=== PATIENT | female | born 2005 | race Caucasian/White ===

== ENCOUNTER 2024-05-20 20:58 | Inpatient (IN) | payer BC ==
[~2024-05-20] VITALS: Ht 157.5 cm; Wt 47.2 kg
[2024-05-20 21:15] LABS: BASOPHILS # (AUTO) 0.1 K/uL (0.0-0.2); BASOPHILS % (AUTO) 0.7 % (0.0-2.0); EOSINOPHILS # (AUTO) 0.1 K/uL (0.0-0.7); EOSINOPHILS % (AUTO) 1.6 % (0.0-6.0); HEMATOCRIT 40 % (33-45); HEMOGLOBIN 13.3 g/dL (11.5-14.8); LYMPHOCYTES # (AUTO) 2.5 K/uL (0.8-4.8); MEAN CORPUSCULAR HEMOGLOBIN 30 PG (26.0-33.0); MEAN CORPUSCULAR HGB CONC 33 g/dl (31.0-36.0); MEAN CORPUSCULAR VOLUME 89 fL (82-100); MONOCYTES # (AUTO) 0.4 K/uL (0.1-1.30); NEUTROPHILS # (AUTO) 5.6 K/uL (1.8-8.9); NEUTROPHILS % (AUTO) 64.7 % (43.0-81.0); PLATELET COUNT (AUTO) 252 K/uL (150-450); RED BLOOD CELL COUNT(AUTO) 4.49 MIL/uL (4.0-5.2); RED CELL DISTRIBUTION WIDTH 13.9 % (11.5-15.0); WHITE BLOOD COUNT (AUTO) 8.7 K/uL (4.3-11.0)
[2024-05-20 21:29] LABS: ALBUMIN 4.3 g/dL (3.4-5.0); BILIRUBIN,DIRECT 0.1 mg/dL (0.0-0.2); BILIRUBIN,TOTAL 0.4 mg/dL (0.2-1.0); CALCIUM, SERUM 8.7 mg/dL (8.5-10.1); CREATININE 0.7 mg/dL (0.6-1.3); TOTAL PROTEIN, SERUM 7.3 g/dL (6.4-8.2)
[2024-05-20 21:35] LABS: POTASSIUM 3.4 mmol/L (3.5-5.1)
[2024-05-20] MEDS ORDERED: ONDANSETRON HCL/PF 4 MG/2 ML VIAL ONE (21:45)
[2024-05-20] MEDS: IV NS 0.9% 1,000 ML BAG IV ONE (21:46)
[2024-05-20] MEDS: ONDANSETRON HCL/PF 4 MG/2 ML VIAL IVP ONE (21:46)
[2024-05-21 02:17] LABS: APPEARANCE,URINE CLEAR (CLEAR); BILIRUBIN,URINE NEGATIVE (NEGATIVE); BLOOD, URINE NEGATIVE Ery/uL (NEGATIVE); COLOR,URINE YELLOW (YELLOW); KETONES,URINE NEGATIVE (NEGATIVE); LEUKOCYTE ESTERASE ,URINE NEGATIVE (NEGATIVE); NITRITE, URINE NEGATIVE (NEGATIVE); PREGNANCY TEST URINE QUAL NEGATIVE (NEGATIVE); PROTEIN,URINE NEGATIVE (NEGATIVE); UGLUCOSE NEGATIVE (NEGATIVE); UROBILINOGEN,URINE 0.2 EU/dL (0.2)
[2024-05-21 02:27] LABS: AMPHETAMINE, URINE NEGATIVE (NEGATIVE); BARBITURATE, URINE NEGATIVE (NEGATIVE); BENZODIAZEPINE, URINE NEGATIVE (NEGATIVE); COCCAINE, URINE NEGATIVE (NEGATIVE); OPIATE, URINE NEGATIVE (NEGATIVE); PHENCYCLIDINE SCREEN,URINE NEGATIVE (NEGATIVE)
[2024-05-21 02:28] LABS: CANNABINOID, URINE POSITIVE (NEGATIVE)
[2024-05-21] MEDS ORDERED: ONDANSETRON HCL/PF 4 MG/2 ML VIAL ONE ×3 (02:34→08:26)
[2024-05-21] MEDS: ONDANSETRON HCL/PF 4 MG/2 ML VIAL IV ONE ×2 (02:57→05:04)
[2024-05-21] MEDS ORDERED: PROCHLORPERAZINE EDISYLATE 10 MG/2 ML VIAL IVP PRN (06:00)
[2024-05-21] MEDS ORDERED: ACETAMINOPHEN 325 MG TABLET PO PRN (06:00)
[2024-05-21] MEDS: ONDANSETRON HCL/PF 4 MG/2 ML VIAL IVP PRN (08:30)
[2024-05-21] MEDS: IV NS 0.9% 1,000 ML IV SCH (08:30)
[2024-05-21] MEDS ORDERED: THIA100T74 PO (09:45)
[2024-05-21] MEDS ORDERED: DIPH25TA25 PO (09:45)
[2024-05-21] MEDS ORDERED: FOLI0.4T6 PO (09:45)
[2024-05-21] MEDS ORDERED: CLON0.2T PO (09:45)
[2024-05-21] MEDS ORDERED: FERR325T23 PO (09:45)
[2024-05-21] MEDS ORDERED: TERA2CAP4 PO (09:45)
[2024-05-21] MEDS ORDERED: HYDR50CA5 PO (09:45)
[2024-05-21] MEDS ORDERED: BACL10TA PO (09:45)
[2024-05-21] MEDS ORDERED: MELA5TAB PO (09:45)
[2024-05-21] MEDS ORDERED: ARIP10TA9 PO (09:45)
[2024-05-21] MEDS ORDERED: ONDA4TAB5 PO (09:45)
[2024-05-21] MEDS ORDERED: ESCI10TA PO (09:45)
[2024-05-21] MEDS ORDERED: TRAZ-257 PO (09:45)
[2024-05-21] MEDS ORDERED: MORPHINE SULFATE INJ 2 MG/ML DISP.SYRIN ONE (10:46)
[2024-05-21] MEDS: MORPHINE SULFATE INJ 2 MG/ML DISP.SYRIN IV PRN (10:49)
[2024-05-21 11:01] LABS: CALCIUM, SERUM 8.8 mg/dL (8.5-10.1); CREATININE 0.6 mg/dL (0.6-1.3); POTASSIUM 3.7 mmol/L (3.5-5.1)
[2024-05-21 12:02] VITALS: BP 103/65; TEMP 98; O2SAT 97
== END 2024-05-21 16:30 | disposition left against medical advice (07) | DRG 917 ==
LOC: ER 21:07 → TRANSITION 05-21 08:21 → MED 05-21 12:15
PROVIDERS: ADMIT Nurse Practitioner Acute Care; ATTEND Nurse Practitioner Acute Care
DX: T51.8X1A Toxic effect of other alcohols, accidental (unintentional), initial encounter (principal); G92.8 Other toxic encephalopathy; Y92.89 Other specified places as the place of occurrence of the external cause; E87.6 Hypokalemia; I10 Essential (primary) hypertension; Y90.9 Presence of alcohol in blood, level not specified; R11.2 Nausea with vomiting, unspecified
CPT/HCPCS: 36415; 80048-TC; 80076-TC; 83690-TC; 84703-TC; 85025-TC; G0378; J2270; J2405; J7030

== ENCOUNTER 2024-06-02 11:29 | Emergency (ER) | payer BC ==
[~2024-06-02] VITALS: Ht 157.5 cm; Wt 52.2 kg
[~2024-06-02 11:29] MED LIST: ARIP10TA9 PO; BACL10TA PO; CLON0.2T PO; DIPH25TA25 PO; ESCI10TA PO; FERR325T23 PO; FOLI0.4T6 PO; HYDR50CA5 PO; MELA5TAB PO; ONDA4TAB5 PO; TERA2CAP4 PO; THIA100T74 PO; TRAZ-257 PO
[2024-06-02] MEDS ORDERED: ONDANSETRON HCL 4 MG/5 ML SOLUTION ONE (12:20)
[2024-06-02] MEDS ORDERED: BENZONATATE 100 MG CAPSULE PO ONE (12:20)
[2024-06-02] MEDS ORDERED: IBUPROFEN 600 MG TABLET ONE (12:21)
[2024-06-02] MEDS: BENZONATATE 100 MG CAPSULE PO STA (12:24)
[2024-06-02] MEDS: ONDANSETRON HCL 4 MG/5 ML SOLUTION PO ONE (12:25)
[2024-06-02] MEDS: IBUPROFEN 600 MG TABLET PO ONE (12:25)
[2024-06-02] MEDS ORDERED: IBUP-1955 PO (13:17)
[2024-06-02] MEDS ORDERED: ONDA4TAB5 PO (13:17)
[2024-06-02] MEDS ORDERED: BENZ-13 PO (13:17)
[2024-06-02 13:30] VITALS: BP 98/65; TEMP 98.7; O2SAT 98
== END 2024-06-02 13:31 | disposition home or self-care (01) ==
LOC: ER 11:36
DX: J06.9 Acute upper respiratory infection, unspecified (principal); R11.2 Nausea with vomiting, unspecified; R19.7 Diarrhea, unspecified; R53.81 Other malaise; F19.10 Other psychoactive substance abuse, uncomplicated; Z79.899 Other long term (current) drug therapy; Z20.822 Contact with and (suspected) exposure to COVID-19
CPT/HCPCS: 99284; 87426; 87804 ×2; Q0162